=== PATIENT | female | born 1955 | race Hispanic/Latino ===

== ENCOUNTER → 2017-08-23 | Outpatient (CLI) | payer MEDICAID ==
[~2017-08-23] MED LIST: CARAL PO; CHOL500050 PO; ELTR50TA PO; FURO40TA5 PO; GABA-529 PO; HUM10VIA6 SQ; IRON1CAP30 PO; LACT10SO PO; LEVO150T11 PO; LISI10TA7 PO; LORA10CA9 PO; NITR0.4T50 SL; PANT40TA25 PO; PROC10TA13 PO; SPIR50TA3 PO; TRAM50TA4 PO
[2017-08-23 13:31] LABS: BASOPHILS % (AUTO) 0.6 % (0.0-5.0); EOSINOPHILS % (AUTO) 1.5 % (0.0-8.0); HEMATOCRIT 29.5 % (36-48); LYMPHOCYTES % (AUTO) 40.3 % (21.0-51.0); MEAN CORPUSCULAR HEMOGLOBIN 36.2 pg (27.0-33.0); MEAN CORPUSCULAR HGB CONC 36.2 g/dL (32.0-36.0); MEAN CORPUSCULAR VOLUME 100.2 fL (79-99); MONOCYTES % (AUTO) 4.7 % (3.0-13.0); NEUTROPHILS % (AUTO) 52.9 % (40.0-77.0); NUCLEATED RED BLOOD CELLS 0.1 % (0.0-0.19); PLATELET COUNT (AUTO) 131 K/uL (130-400); RED BLOOD CELL COUNT(AUTO) 2.94 MIL/uL (4.00-5.50); RED CELL DISTRIBUTION WIDTH 14.5 % (11.0-15.5); WHITE BLOOD COUNT (AUTO) 3.4 K/uL (4.8-10.8)
[2017-08-23 13:41] LABS: HEMOGLOBIN A1C 8.1 % (4.0-6.0)
[2017-08-23 13:43] LABS: ALBUMIN 2.7 g/dL (3.5-5.0); BILIRUBIN,TOTAL 2.6 mg/dL (0.2-1.0); CREATININE 1.3 mg/dL (0.5-1.5); INR 1.12 (0.85-1.15); PROTHROMBIN TIME 11.7 SEC (9.6-11.6); TOTAL PROTEIN, SERUM 7.2 g/dL (6.0-8.3)
[2017-08-23 14:01] LABS: % IRON SATURATION 91.6 % (22-44)
[2017-08-24 10:21] LABS: HEPATITIS Bs ANTIGEN SCREEN P Negative (Negative)
[2017-08-25 15:25] LABS: ALPHA-1-ANTITRYPSIN 150 mg/dL (90-200)
== END | disposition home or self-care (01) ==
LOC: EDBD → LAB 12:37
PROVIDERS: ATTEND Internal Medicine
DX: Z11.59 Encounter for screening for other viral diseases (principal); R94.5 Abnormal results of liver function studies; R79.89 Other specified abnormal findings of blood chemistry
CPT/HCPCS: 36415; 80053; 80061; 82103; 82104; 82105; 82140; 82172; 82247; 82977; 83010; 83036; 83540; 83550; 83883; 84460; 85025; 85610; 86038; 86215; 86235; 86255; 86704; 86706; 86708; 87340; 87520

== ENCOUNTER 2017-08-26 07:59 | Day surgery (SDC) | payer MEDICAID ==
[~2017-08-26] VITALS: Ht 139.7 cm; Wt 69.9 kg
[~2017-08-26 07:59] MED LIST changes: -CARAL PO; -ELTR50TA PO; -GABA-529 PO; -IRON1CAP30 PO; -LACT10SO PO; -NITR0.4T50 SL; +SODIUM CHLORIDE 0.9% 1000ML 1,000 ML IV ONE; -SPIR50TA3 PO
[2017-08-26 09:04] VITALS: BP 161/73
[2017-08-26] MEDS ORDERED: GABA-529 PO (09:41)
[2017-08-26] MEDS ORDERED: IRON1CAP30 PO (09:41)
[2017-08-26] MEDS ORDERED: NITR0.4T50 SL (09:41)
[2017-08-26] MEDS ORDERED: ELTR50TA PO (09:41)
[2017-08-26 10:45] VITALS: BP 117/63
[2017-08-26 10:50] VITALS: BP 128/69
[2017-08-26 10:55] VITALS: BP 158/82
[2017-08-26 11:00] VITALS: BP 154/84
[2017-08-26 11:15] VITALS: BP 154/80
[2017-10-04] MEDS ORDERED: PANT40TA25 PO (11:52)
[2017-10-04] MEDS ORDERED: LACT10SO PO (11:52)
[2017-10-04] MEDS ORDERED: SPIR50TA5 PO (11:52)
== END 2017-08-26 11:25 | disposition home or self-care (01) ==
LOC: EDBD → ENDO 07:59 → DAH 07:59 → ENDO 11:25
PROVIDERS: ATTEND Internal Medicine
DX: K21.9 Gastro-esophageal reflux disease without esophagitis (principal); K31.7 Polyp of stomach and duodenum; I85.00 Esophageal varices without bleeding; I10 Essential (primary) hypertension; F41.9 Anxiety disorder, unspecified; F32.9 Major depressive disorder, single episode, unspecified; D64.9 Anemia, unspecified; M19.90 Unspecified osteoarthritis, unspecified site; Z90.49 Acquired absence of other specified parts of digestive tract; Z98.890 Other specified postprocedural states; Z68.30 Body mass index [BMI] 30.0-30.9, adult; Z87.442 Personal history of urinary calculi; R07.9 Chest pain, unspecified; K29.60 Other gastritis without bleeding
CPT/HCPCS: 43239; 82948 ×2; 88305; 88342; A4606; J7030

== ENCOUNTER 2017-10-05 06:26 | Day surgery (SDC) | payer MEDICAID ==
[~2017-10-05] VITALS: Ht 142.2 cm; Wt 73.4 kg
[~2017-10-05 06:26] MED LIST changes: +ELTR50TA PO; -FURO40TA5 PO; +GABA-529 PO; +LACT10SO PO; +SPIR50TA5 PO
[2017-10-05 06:58] VITALS: BP 159/72
[2017-10-05] MEDS ORDERED: CARAL PO (07:30)
[2017-10-05] MEDS ORDERED: PROPOFOL 10 MG/ML 20ML VIAL IV ONE (08:18)
[2017-10-05 08:40] VITALS: BP 126/61
== END 2017-10-05 09:15 | disposition home or self-care (01) ==
LOC: DAH 06:26 → SUH 06:26
PROVIDERS: ATTEND Internal Medicine Gastroenterology
DX: D12.4 Benign neoplasm of descending colon (principal); K64.8 Other hemorrhoids; D62 Acute posthemorrhagic anemia; I10 Essential (primary) hypertension; F41.9 Anxiety disorder, unspecified; F32.9 Major depressive disorder, single episode, unspecified; D64.89 Other specified anemias; M19.90 Unspecified osteoarthritis, unspecified site; K29.70 Gastritis, unspecified, without bleeding; K76.6 Portal hypertension; Z90.49 Acquired absence of other specified parts of digestive tract; Z79.899 Other long term (current) drug therapy; Z87.442 Personal history of urinary calculi
CPT/HCPCS: 45385; 82948 ×2; 88305; A4606; J2704; J7030 ×2